=== PATIENT | male | born 1960 | race Caucasian/White ===

== ENCOUNTER 2018-02-19 12:42 | Emergency (ER) | payer BC ==
--- OUTSIDE RECORDS SUMMARY | 2018-02-19 13:05 | XMS REPORT ---
:1960 External Reference #:[id number] Author Organization [facility] Address [address] [place] [address] [place] [address] Phone [phone] Care Team Providers Name Role Phone Gurwinder Snell MD Primary Care Physician Unavailable Payers Type Date Identification Numbers Payment Provider Subscriber Commercial Effective: Policy Number: BS Facets Yancy Cole 2015 [id number] PayID: [id number] [address] [address] GISEL Gagnon [address] Medigap Part B Effective: 2009 Policy Number: BS Of MARGRET Cole [id number] Expires: 2011 PayID: [id number] [address] [address] G[place]EL Gagnon [address] Medigap Part B Expires: 2009 Policy Number: BS Of MARGRET Cole [id number] Group Number: [id number] [address] [address] PayID: [id number] GISEL Gagnon [id number] Advance Directives Type Date Description Status Comment Other Directive 02/28/2016 Health Care Proxy Current and Verified Problems Date Description Provider Status Onset: 12/19/2007 Mixed hyperlipidemia Bebe Foster M.D.,FACP Onset: 12/02/2008 Type II diabetes mellitus Bebe Foster uncontrolled Jevon,FACP Onset: 12/02/2008 Benign essential hypertension Bebe Foster M.D.,FACP Onset: 08/01/2017 Daily headache Bebe Foster M.D.,FACP Onset: 08/16/2017 Chronic tension-type headache Sergey Maloney M.D. Active Onset: 10/11/2017 Obstructive sleep apnea Sergey Maloney M.D. Active syndrome Onset: 09/19/2007 Type 2 diabetes mellitus Gurwinder Snell, Inactive Jevon,FACP Inactive: 03/18/2014 Onset: 06/30/2015 Essential hypertension Gurwinder Snell M.D.,FACP Inactive Inactive: 12/22/2015 Family History Date Family Member(s) Problem(s) Comments General Diabetes General Heart Disease General Kidney Disease Father Heart Disease Father Diabetes Father Diabetes, Non Insulin Dependent Father 80 Father due to PVD () - and diabetes, with sepsis Father Osteoarthritis hip replacement Father Peripheral Vascular Disease (PVD) Mother Kidney Disease Mother due to Renal Failure () - at 44 Mother Mental Illness Siblings 3 First Brother Hypertension First Brother Osteoarthritis Second Brother Unknown estranged First Sister Diabetes First Sister Hypertension First Sister Diabetes, Non Insulin Dependent Paternal Grandfather due to Heart Disease () Paternal Grandmother Rheumatoid Arthritis Social History Type Date Description Comments Marital Status Lives With spouse Occupation Video Journalist Occupation Retired Cigarette Use Former Cigarette Smoker Smoked 2 ppd for 25 years ETOH Use 11/16/2017 Rarely consumes alcohol Recreational Drug Use Denies Drug Use Smoking Patient is a former smoker Smoking Started at 17, quit 30's. 2 pk per day Daily Caffeine Consumes on average 4 cups of regular coffee per day Exercise Type/Frequency Exercises regularly workout every morning General Hx Text 2 kids grown Allergies, Adverse Reactions, Alerts Date Description Reaction Status Severity Comments 09/18/2007 Lipitor active severe myalgias 09/18/2007 Penicillin active Familial 09/18/2007 Bactrim DS active 10/11/2017 Seasonal-Grass/Polllen active Medications Medication Date Status Form Strength Qnty SIG Indications Ordering Provider Basaglar 11/16 Active Solution 100Unit/M 45ml inject 25 Gurwinder Grijalva Pen-Injec L units matthias Snell subcutaneous Jevon,FACP ly daily Topiramate 08/01 Active Tablets 50mg 60tab 1 twice a s day Jevon Maloney BD Pen 04/18 Active Misc 31G X 5 300un use up to E11.9 Gurwinder Grijalva Needle/Mini/Ul /2017 mm its three times Chester, trafine/31G X daily M.D.,FACP 08/11" Pen [place] 04/18 Active 5mm 100un Use With Gurwinder Grijalva 08/11" 31G X /2016 its Levimir Subq Chester, Everyday M.D.,FACP Onetouch 09/24 Active Misc 30G 180un test up to Gurwinder Grijalva Delica Lanc its three times Chester, Fine 30G daily M.D.,FACP Invokana 12/23 Active Tablets 100mg 90tab 1 By Mouth E11.65 Gurwinder Grijalva s Every Day Alis M.DDudley,FACP Onetouch Verio 06/25 Active Strips 100un test up to Gurwinder Grijalva its four times Chester, daily M.D.,FACP Bydureon 03/18 Active Pen 2mg 4unit inject 2 mg E11.65 Gurwinder Grijalva s sc weekly Jevon Snell,FACP Fish Oil 06/12 Active Capsules 1000mg 160ca 2 tabs in ps the am and 2 Andrew, tabs in the N.P. pm Aspirin 01/04 Active Tablets 81mg 50tab 1 po qd Gurwinder Grij[address]va [address] agueda Snell M.D.,[facility] Multivitamins Active Tablets 90tab 1 PO qd Unknown / s Advil Active Capsules 200mg 200ca 1-3 tabs by ps mouth every 8hrs as needed Metformin HCL Active Tablets 500mg 360ta 2 tabs by Gurwinder Grijalva bs mouth twice Chester, a day M.D.,FACP Zetia Active Tablets 10mg 90tab take one Gurwinder Grijalva s tablet by [place], mouth daily M.D.,[facility] Zyrtec Allergy Active Tablets 10mg 1 by mouth Unknown / every day Lubna Active Tablets 180mg 1 by mouth Unknown Allergy / every day Gemfibrozil Active Tablets 600mg 180ta Take 1 Jean Marie bs Tablet By Kaykay, Mouth Twice M.D. Daily Lisinopril 07/20 Hx Tablets 5mg 90tab 1 by mouth Gurwinder Grijalva s every day Alis, - M.DDudley,FACP 03/03 Pen [place] 12/04 Hx 5mm 100un use with Gurwinder Grijalva 08/11" 31G X /2014 its levimir subq Alis, - everyday M.D.,FACP 04/18 Levemir 12/05 Hx Solution 100Unit/M 30uni Inject 25 Gurwinder Grijalva Flexto Pen-Injec L ts Units Under Alis, - t The Skin M.D.,FACP 11/16 Every Levemir 11/18 Hx Solution 100Unit/M 30uni Inject 55 250.02 Gurwinder Grijalva /2013 L ts Units Alis, - Subcutaneous M.D.,FACP 12/05 ly Every Pioglitazone 08/14 Hx Tablets 45mg 90tab Take 1 250.02 Gurwinder Grijalva HCL s Tablet By Alis, - Mouth Every M.D.,FACP Pioglitazone 01/29 Hx Tablets 45mg 90tab Take 1 Gurwinder Grijalva HCL /2011 s Tablet By Alis, - Mouth Every M.D.,FACP Freestyle Lite 11/05 Hx 450un Test Every Gurwinder Grijalva Blood Gluc its Day And as Alis, 50'S - Needed M.D.,FACP 06/25 Minocycline 05/06 Hx Capsules 75mg 28cap bid po 695.3 Gurwinder Grijalva HCL s Alis - M.D.,FACP 08/25 Levemir 05/06 Hx Solution 100Unit/M 30uni Inject 55 250.02 Gurwinder Grijalva Flexpen L ts Units Alis, - Subcutaneous M.D.,FACP 11/18 ly Every Day Ketoconazole 04/12 Hx Cream 2% 45g apply to 690.10 Gurwinder Grijalva affected Alis, - area bid prn M.D.,FACP 08/25 Freestyle Lite 09/10 Hx 150un qd and prn 250.02 Gurwinder Grijalva Test Strips its Alis, - M.D.,FACP 11/05 B-D U/FN Pen 04/19 Hx 100un use as Gurwinder Grijalva NDL Mini its directed Alis (Ej) Roseline Escoto,[facility] 12/04 Niaspan 01/04 Hx Tablets 500mg 180ta take 2 Gurwinder Grijalva ER bs tablets by Alis, - mouth every M.D.,FACP 04/12 Actos 01/04 Hx Tablets 45mg 90tab Take 1 250.02 Gurwinder Grijalva s Tablet By Alis, - Mouth Every M.D.,FACP Niaspan 06/01 Hx Tablets 500mg 60tab 2 PO qpm Gurwinder Grijalva ER s Roseline Snell M.D.,[facility] 01/04 Byvince 12/02 Hx Solution 10mcg/0.0 2.4un Inject 1 250.02 Gurwinder Grijalva 4ML its Dose Under Alis - The Skin Jevon,[facility] 05/06 Twice Daily as Directed Destiny De La Torre 10/08 Hx 31-Gauge 60uni use as Gurwinder Grijalva X 5mm ts directed Roseline Snell M.D.,[facility] 04/19 Destiny 09/30 Hx Solution 5mcg/0.02 1mont sc bid 250.02 Gurwinder Grijalva ML h Roseline Snell M.D.,[facility] 12/02 Niaspan 07/01 Hx Tablets 1000mg 30tab 1 qpm po Gurwinder Grijalva ER Roseline Garcia M.D.,[facility] 06/01 Glipizide 04/18 Hx Tablets 5mg 60tab 1 PO bid Gurwinder Grijalva /2007 Roseline Garcia M.D.,[facility] 09/30 Naprosyn 04/03 Hx Tablets 500mg 60tab 1 po bid prn 726.19 Gurwinder Grijalva /2007 Roseline Garcia M.D.,[facility] 07/01 Tramadol HCL 04/03 Hx Tablets 50mg 50tab 1-2 bid prn 726.19 Gurwinder Grijalva /2007 Roseline Garcia M.D.,[facility] 07/01 Accu-Check 12/18 Hx 50uni bid prn 250.02 Gurwinder Grijalva Yoselin Test /2007 hollie Snell Strips Roseline Escoto,[facility] 09/10 Actos Hx Tablets 30mg 90tab po q am Gurwinder Grijalva /0000 Roseline Garcia M.D.,FACP 01/04 Asa Hx 81mg 90uni 1 PO qd Unknown /0000 ts - 01/04 Glipizide Hx Tablets 5mg 1 PO bid Unknown /0000 - 09/18 Niaspan Hx Tablets 500mg 30tab 2 tabs qhs Gurwinder Grijalva /0000 ER Roseline Garcia M.D.,[facility] 07/01 Fish Oil Hx 1 tab bid Unknown /0000 - 06/12 Lubna Hx Tablets 60mg 180ta 1 PO bid prn Unknown /0000 bs - 09/10 Softclix Hx 50uni bid or as Gurwinder Grijalva Lancets /0000 ts Roseline Garcia M.D.,[facility] 09/24 Accucheck Hx bid prn 250.00 Unknown Advantage Test /0000 Strips - 12/18 Metformin HCL Hx Tablets 1000mg 180ta Take 1 Gurwinder Grijalva /0000 bs Tablet By Alis, - Mouth Twice M.DDudley,[facility] 05/[address] 100mg 14cap bid po when Unknown Hyclate /0000 Part s rosacea is - active 1 po 12/25 qd when it is not active Fexofenadine Hx Tablets 180mg 30tab 1 po qd prn Unknown HCL /0000 s - 06/30 Lubna 00/00 Hx Tablets 180mg 1 by mouth Unknown Allergy /0000 every day - 06/25 Doxycycline 00/00 Hx Capsules 100mg 1 capsule Unknown Hyclate /0000 daily prn - for rosacia 04/21 Minocycline 00/00 Hx Capsules 100mg Unknown HCL /0000 - 06/30 Lubna 0000 Hx Tablets 60mg 3 by mouth Unknown Allergy /0000 every day - 11/16 Zyrtec Allergy Hx Capsules 10mg 1 by mouth Unknown /0000 every day - 08/07 Lisinopril Hx Tablets 10mg 30tab Take 1/2 Gurwinder D. /0000 s Tablet By Alis, - Mouth Every M.D.,FACP 07/20 /2016 Minocycline Hx Capsules 100mg take one Unknown HCL /0000 capsule by - mouth two 11/16 times a day as needed Medications Administered in Office Medication Date Status Form Strength Qnty SIG Indications Ordering Provider Depomedjagdeep Administered Injection Denisha 80MG 014 Jevon Sevilla Immunizations CPT Code Status Date Vaccine Lot # [id number] Given 10/15/2017 Zoster (Shingles) Vaccine (HZV), Recombinant, Subunit, Adjuvanted 21045 Given 08/14/2017 Zoster (Shingles) Vaccine (HZV), Recombinant, Subunit, Adjuvanted 35616 Given 02/06/2017 Influenza Virus Vaccine, Quadrivalent, Split, Preservative Free 29473 Given 03/01/2016 Influenza Virus Vaccine, Quadrivalent, Split Virus, Im Use 15906 Given 06/30/2015 Tdap - Tetanus/Diptheria/Acellular Pertussis [id number] 19560 Given 03/26/2015 Flu Vaccine Split Virus Preservative Free For Indiv 3Yr Older 96232 Given 09/23/2014 Pneumococcal Conjugate Vaccine 13 Valent For [id number] Intramuscular Use 88066 Given 03/08/2014 Flu Vaccine Split Virus Preservative Free For Indiv 3Yr Older 66493 Given 03/29/2013 Flu Vaccine Split Virus Preservative Free For Indiv 3Yr Older 35853 Given 12/18/2012 Hepatitis B Vaccine Adult Dosage [id number] 01024 Given 07/13/2012 Hepatitis B Vaccine Adult Dosage [id number] 21125 Given 06/12/2012 Pneumonia Vaccine [id number] 81773 Given 06/12/2012 Pneumonia Vaccine 29421 Given 06/12/2012 Pneumonia Vaccine 05938 Given 06/12/2012 Hepatitis B Vaccine Adult Dosage [id number] Q2038 Given 03/07/2012 Fluzone Vaccine [id number] 07724 Given 04/12/2011 Influenza Virus 3Yrs & Over [id number] 21066 Given 04/06/2010 Influenza Virus 3Yrs & Over [id number] 06870 Given 04/06/2009 Influenza Virus Vaccine, Pandemic Formulation [id number] 89167 Given 04/06/2009 Administration Swine Flu Shot 65260 Given 04/03/2008 Influenza Virus 3Yrs & Over 55346 Given 04/03/2008 Influenza Virus 3Yrs & Over [id number] Vital Signs Date Vital Result Comment 01/24/2018 Height 71.5 inches 5'11.50" Weight 231.00 lb Heart Rate 58 /min BP Systolic 110 mmHg BP Diastolic 70 mmHg Respiratory Rate 16 /min Pain Level 0 O2 % BldC Oximetry 98 % BMI (Body Mass Index) 31.8 kg/m2 11/20/2017 Height 71.5 inches 5'11.50" Weight 235.38 lb Heart Rate 66 /min BP Systolic Sitting 114 mmHg Lue large cuff BP Diastolic Sitting 76 mmHg Lue large cuff Respiratory Rate 14 /min Pain Level 97 BMI (Body Mass Index) 32.4 kg/m2 11/16/2017 Height 71.5 inches 5'11.50" Weight 235.00 lb Heart Rate 72 /min BP Systolic Sitting 128 mmHg BP Diastolic Sitting 80 mmHg Body Temperature 97.0 F O2 % BldC Oximetry 97 % BMI (Body Mass Index) 32.3 kg/m2 10/11/2017 Height 71.25 inches 5'11.25" Weight 239.00 lb Heart Rate 59 /min BP Systolic 118 mmHg BP Diastolic 72 mmHg Respiratory Rate 16 /min Pain Level 0 O2 % BldC Oximetry 98 % BMI (Body Mass Index) 33.1 kg/m2 09/26/2017 Height 71.25 inches 5'11.25" Weight 238.00 lb Heart Rate 68 /min BP Systolic Sitting 116 mmHg BP Diastolic Sitting 72 mmHg Respiratory Rate 14 /min O2 % BldC Oximetry 97 % BMI (Body Mass Index) 33.0 kg/m2 09/20/2017 Height 71.25 inches 5'11.25" Weight 239.00 lb Heart Rate 68 /min BP Systolic Sitting 138 mmHg BP Diastolic Sitting 64 mmHg Respiratory Rate 14 /min O2 % BldC Oximetry 98 % BMI (Body Mass Index) 33.1 kg/m2 Neck Circumference in inches 17.0 08/16/2017 Height 71.25 inches 5'11.25" Weight 236.00 lb Heart Rate 76 /min BP Systolic Sitting 126 mmHg BP Diastolic Sitting 74 mmHg Respiratory Rate 12 /min O2 % BldC Oximetry 97 % BMI (Body Mass Index) 32.7 kg/m2 08/01/2017 Weight 236.00 lb Heart Rate 65 /min BP Systolic Sitting 120 mmHg BP Diastolic Sitting 70 mmHg Body Temperature 97.0 F O2 % BldC Oximetry 96 % 04/18/2017 Weight 236.00 lb Heart Rate 64 /min BP Systolic Sitting 104 mmHg BP Diastolic Sitting 70 mmHg Body Temperature 96.4 F O2 % BldC Oximetry 98 % 02/21/2017 Weight 235.00 lb Heart Rate 70 /min BP Systolic Sitting 120 mmHg 118/84 BP Diastolic Sitting 60 mmHg 118/84 BP Systolic Standing 115 mmHg BP Diastolic Standing 72 mmHg Body Temperature 97.6 F O2 % BldC Oximetry 98 % 10/12/2016 Height 71 inches 5'11" Weight 236.00 lb Heart Rate 79 /min BP Systolic 108 mmHg BP Diastolic 72 mmHg BP Systolic Recheck 122 mmHg BP Diastolic Recheck 78 mmHg Body Temperature 96.9 F O2 % BldC Oximetry 96 % BMI (Body Mass Index) 32.9 kg/m2 07/05/2016 Weight 233.00 lb with shoes Heart Rate 73 /min BP Systolic 110 mmHg BP Diastolic 74 mmHg O2 % BldC Oximetry 98 % 03/22/2016 Weight 232.00 lb Heart Rate 80 /min BP Systolic Sitting 122 mmHg BP Diastolic Sitting 76 mmHg Respiratory Rate 15 /min O2 % BldC Oximetry 98 % 12/22/2015 Weight 233.00 lb Heart Rate 66 /min BP Systolic Sitting 124 mmHg BP Diastolic Sitting 80 mmHg Respiratory Rate 15 /min O2 % BldC Oximetry 98 % 06/30/2015 Height 71.75 inches 5'11.75" Weight 235.00 lb Heart Rate 69 /min BP Systolic Sitting 118 mmHg BP Diastolic Sitting 78 mmHg Body Temperature 97.0 F O2 % BldC Oximetry 98 % BMI (Body Mass Index) 32.1 kg/m2 04/21/2015 Height 71.75 inches 5'11.75" Weight 239.50 lb Heart Rate 70 /min BP Systolic Sitting 126 mmHg BP Diastolic Sitting 78 mmHg Body Temperature 96.5 F O2 % BldC Oximetry 98 % BMI (Body Mass Index) 32.7 kg/m2 04/21/2015 Height 71.75 inches 5'11.75" 12/23/2014 Height 71.75 inches 5'11.75" Weight 253.00 lb Heart Rate 71 /min BP Systolic Sitting 128 mmHg BP Diastolic Sitting 84 mmHg O2 % BldC Oximetry 98 % BMI (Body Mass Index) 34.5 kg/m2 09/23/2014 Height 71.75 inches 5'11.75" Weight 252.50 lb Heart Rate 78 /min BP Systolic Sitting 148 mmHg BP Diastolic Sitting 80 mmHg Body Temperature 97.3 F O2 % BldC Oximetry 98 % BMI (Body Mass Index) 34.5 kg/m2 06/25/2014 Height 71.75 inches 5'11.75" Weight 256.25 lb Heart Rate 92 /min BP Systolic Sitting 138 mmHg BP Diastolic Sitting 85 mmHg Body Temperature 98.6 F BMI (Body Mass Index) 35.0 kg/m2 03/18/2014 Weight 272.50 lb Heart Rate 87 /min BP Systolic Sitting 136 mmHg BP Diastolic Sitting 81 mmHg Body Temperature 97.3 F O2 % BldC Oximetry 98 % 12/25/2013 Weight 265.00 lb Heart Rate 72 /min BP Systolic Sitting 128 mmHg BP Diastolic Sitting 86 mmHg 12/11/2013 Heart Rate 82 /min BP Systolic Sitting 130 mmHg BP Diastolic Sitting 84 mmHg 10/17/2013 Height 72 inches 6'0" Weight 265.00 lb Heart Rate 91 /min BP Systolic 119 mmHg BP Diastolic 86 mmHg BMI (Body Mass Index) 35.9 kg/m2 06/05/2013 Height 71.5 inches 5'11.50" Weight 266.00 lb Heart Rate 84 /min BP Systolic Sitting 128 mmHg BP Diastolic Sitting 78 mmHg BMI (Body Mass Index) 36.6 kg/m2 01/30/2013 Weight 267.00 lb Heart Rate 84 /min BP Systolic Sitting 124 mmHg BP Diastolic Sitting 78 mmHg 06/12/2012 Height 73.25 inches 6'1.25" Weight 275.00 lb Heart Rate 81 /min BP Systolic Sitting 129 mmHg BP Diastolic Sitting 83 mmHg BMI (Body Mass Index) 36.0 kg/m2 03/07/2012 Height 73.25 inches 6'1.25" Weight 268.00 lb Heart Rate 68 /min BP Systolic Sitting 120 mmHg BP Diastolic Sitting 68 mmHg BMI (Body Mass Index) 35.1 kg/m2 10/06/2011 Height 73.25 inches 6'1.25" Weight 265.00 lb Heart Rate 78 /min BP Systolic Sitting 118 mmHg lg cuff BP Diastolic Sitting 84 mmHg lg cuff BMI (Body Mass Index) 34.7 kg/m2 08/26/2011 Height 73.25 inches 6'1.25" Weight 271.00 lb Heart Rate 76 /min BP Systolic Sitting 126 mmHg BP Diastolic Sitting 84 mmHg BMI (Body Mass Index) 35.5 kg/m2 05/06/2011 Height 73.25 inches 6'1.25" Weight 257.00 lb Heart Rate 74 /min BP Systolic Sitting 132 mmHg BP Diastolic Sitting 80 mmHg BMI (Body Mass Index) 33.7 kg/m2 04/12/2011 Weight 257.00 lb Heart Rate 60 /min BP Systolic Sitting 110 mmHg BP Diastolic Sitting 72 mmHg Body Temperature 97.8 F 09/10/2010 Weight 256.00 lb Heart Rate 72 /min BP Systolic Sitting 124 mmHg BP Diastolic Sitting 76 mmHg 04/06/2010 Weight 256.00 lb Heart Rate 74 /min BP Systolic Sitting 120 mmHg BP Diastolic Sitting 78 mmHg 01/04/2010 Weight 251.00 lb Heart Rate 86 /min BP Systolic Sitting 120 mmHg BP Diastolic Sitting 78 mmHg 03/04/2009 Weight 253.50 lb Heart Rate 72 /min BP Systolic Sitting 116 mmHg BP Diastolic Sitting 78 mmHg 12/02/2008 Weight 258.75 lb Heart Rate 80 /min BP Systolic Sitting 136 mmHg BP Diastolic Sitting 80 mmHg 09/30/2008 Height 71 inches 5'11" Weight 265.00 lb Heart Rate 72 /min BP Systolic Sitting 114 mmHg BP Diastolic Sitting 70 mmHg BMI (Body Mass Index) 37.0 kg/m2 07/01/2008 Height 71 inches 5'11" Weight 274.00 lb Heart Rate 80 /min BP Systolic Sitting 126 mmHg BP Diastolic Sitting 70 mmHg BMI (Body Mass Index) 38.2 kg/m2 04/03/2008 Height 71 inches 5'11" Weight 270.00 lb Heart Rate 76 /min BP Systolic Sitting 138 mmHg BP Diastolic Sitting 88 mmHg BMI (Body Mass Index) 37.7 kg/m2 01/10/2008 Height 71 inches 5'11" Weight 259.00 lb Heart Rate 68 /min BP Systolic Sitting 108 mmHg BP Diastolic Sitting 66 mmHg BMI (Body Mass Index) 36.1 kg/m2 12/19/2007 Height 71 inches 5'11" Weight 258.00 lb Heart Rate 64 /min BP Systolic Sitting 118 mmHg BP Diastolic Sitting 70 mmHg BMI (Body Mass Index) 36.0 kg/m2 09/19/2007 Weight 278.00 lb Heart Rate 68 /min BP Systolic Sitting 138 mmHg BP Diastolic Sitting 88 mmHg Results Test Date Test Result H/L Range Note Urine Microalbumin 11/16/2017 Ur Microalbumin (mg/L) < 15.0 mg/L Random Urine Creatinine 43.74 mg/dL Urine Microalbumin/Creatinine TNP ug/mg <31 1 Laboratory test finding 07/24/2017 Hemoglobin A1c (Glyco HGB) 6.2 % High 4.0-5.6 2 Lipid Profile 07/24/2017 Triglycerides 58 mg/dL 3 (Trig/Chol/HDL) Cholesterol 146 mg/dL 4 HDL Cholesterol 51.1 mg/dL 5 LDL Cholesterol 83 mg/dL 6 Comp Metabolic Panel 07/24/2017 Sodium 137 mmol/L 133-145 Potassium 4.5 mmol/L 3.5-5.0 Chloride 104 mmol/L 101-111 Co2 Carbon Dioxide 27 mmol/L 22-32 Anion Gap 6 mmol/L 2-11 Glucose 127 mg/dL High 70-100 Blood Urea Nitrogen 20 mg/dL 6-24 Creatinine 0.86 mg/dL 0.67-1.17 BUN/Creatinine Ratio 23.3 High 8-20 Calcium 9.2 mg/dL 8.6-10.3 Total Protein 6.9 g/dL 6.4-8.9 Albumin 4.3 g/dL 3.2-5.2 Globulin 2.6 g/dL 2-4 Albumin/Globulin Ratio 1.7 1-3 Total Bilirubin 0.40 mg/dL 0.2-1.0 Alkaline Phosphatase 69 U/L 34-104 Alt 12 U/L 7-52 Ast 13 U/L 13-39 Egfr Non- 91.7 >60 Egfr 117.9 >60 7 CBC Auto Diff 07/24/2017 White Blood Count 5.6 10^3/uL 3.5-10.8 Red Blood Count 5.33 10^6/uL 4.0-5.4 Hemoglobin 16.9 g/dL 14.0-18.0 Hematocrit 49 % 42-52 Mean Corpuscular Volume 93 fL 80-94 Mean Corpuscular Hemoglobin 32 pg High 27-31 Mean Corpuscular HGB Conc 34 g/dL 31-36 Red Cell Distribution Width 12 % 10.5-15 Platelet Count 237 10^3/uL 150-450 Mean Platelet Volume 8 um3 7.4-10.4 Abs Neutrophils 3.5 10^3/uL 1.5-7.7 Abs Lymphocytes 1.3 10^3/uL 1.0-4.8 Abs Monocytes 0.6 10^3/uL 0-0.8 Abs Eosinophils 0.2 10^3/uL 0-0.6 Abs Basophils 0 10^3/uL 0-0.2 Abs Nucleated RBC 0 10^3/uL Granulocyte % 62.3 % 38-83 Lymphocyte % 23.7 % Low 25-47 Monocyte % 10.4 % High 0-7 Eosinophil % 3.0 % 0-6 Basophil % 0.6 % 0-2 Nucleated Red Blood Cells % 0.1 Laboratory test 01/09/2017 Hemoglobin A1c (Glyco 6.3 % High Less than 6.0 8 finding HGB) Basic Metabolic Panel 01/09/2017 Sodium 137 mmol/L 133-145 Potassium 4.5 mmol/L 3.5-5.0 Chloride 103 mmol/L 101-111 Co2 Carbon Dioxide 26 mmol/L 22-32 Anion Gap 8 mmol/L 2-11 Glucose 201 mg/dL High 70-100 Blood Urea Nitrogen 17 mg/dL 6-24 Creatinine 0.77 mg/dL 0.67-1.17 BUN/Creatinine Ratio 22.1 High 8-20 Calcium 9.3 mg/dL 8.6-10.3 Egfr Non- 104.5 >60 Egfr 134.4 >60 9 Urine Microalbumin Random 07/12/2016 Urine Creatinine 74.71 mg/dL Ur Microalbumin (mg/L) < 15.0 mg/L Urine Microalbumin/Creatinine TNP ug/mg <31 10 Lipid Profile (Trig/Chol/HDL) 07/12/2016 Triglycerides 112 mg/dL 11 Cholesterol 171 mg/dL 12 HDL Cholesterol 50.6 mg/dL 13 LDL Cholesterol 98 mg/dL 14 Basic Metabolic Panel 07/12/2016 Sodium 137 mmol/L 133-145 Potassium 4.5 mmol/L 3.5-5.0 Chloride 103 mmol/L 101-111 Co2 Carbon Dioxide 28 mmol/L 22-32 Anion Gap 6 mmol/L 2-11 Glucose 160 mg/dL High 70-100 Blood Urea Nitrogen 19 mg/dL 6-24 Creatinine 0.80 mg/dL 0.67-1.17 BUN/Creatinine Ratio 23.8 High 8-20 Calcium 9.8 mg/dL 8.6-10.3 Egfr Non- 100.0 >60 Egfr 128.6 >60 15 Liver Function Panel 07/12/2016 Total Protein 7.0 g/dL 6.4-8.9 Albumin 4.4 g/dL 3.2-5.2 Globulin 2.6 g/dL 2-4 Albumin/Globulin Ratio 1.7 1-3 Total Bilirubin 0.60 mg/dL 0.2-1.0 Direct Bilirubin 0.10 mg/dL 0.03-0.18 Indirect Bilirubin 0.5 mg/dL 0.3-1.0 Alkaline Phosphatase 60 U/L 34-104 Alt 15 U/L 7-52 Ast 14 U/L 13-39 Laboratory test finding 07/12/2016 Erythrocyte Sed Rate 10 mm/Hr 0-20 16 Vitamin B12 305 pg/mL 180-914 17 TSH (Thyroid Stim Horm) 1.62 mcIU/mL 0.34-5.60 18 Hemoglobin A1c (Glyco HGB) 6.8 % High Less than 6.0 19 Laboratory test finding 07/05/2016 Hemoglobin A1c 6.4 5-7 Laboratory test finding 12/22/2015 Hemoglobin A1c 5.9 5-7 Basic Metabolic Panel 09/02/2015 Sodium 138 mmol/L 133-145 Potassium 4.4 mmol/L 3.5-5.0 Chloride 101 mmol/L 101-111 Co2 Carbon Dioxide 32 mmol/L 22-32 Anion Gap 5 mmol/L 2-11 Glucose 132 mg/dL High 70-100 Blood Urea Nitrogen 19 mg/dL 6-24 Creatinine 0.82 mg/dL 0.67-1.17 BUN/Creatinine Ratio 23.2 High 8-20 Calcium 9.7 mg/dL 8.6-10.3 Egfr Non- 97.5 >60 Egfr 125.4 >60 20 Laboratory test 09/02/2015 Hemoglobin A1c (Glyco 6.2 % High Less than 6.0 21 finding HGB) Urine Microalbumin 06/30/2015 Ur Microalbumin < 5.0 mg/L Random (mg/L) Urine Creatinine 82.99 mg/dL Urine Microalbumin/Creatinine TNP ug/mg <31 22 Lipid Profile (Trig/Chol/HDL) 04/15/2015 Triglycerides 73 mg/dL 23 Cholesterol 149 mg/dL 24 HDL Cholesterol 42.3 mg/dL 25 LDL Cholesterol 92 mg/dL 26 Laboratory test 04/15/2015 Hemoglobin A1c 6.1 % High Less than 6.0 27 finding (Glyco HGB) Basic Metabolic Panel 04/15/2015 Sodium 139 mmol/L 133-145 Potassium 4.4 mmol/L 3.5-5.0 Chloride 103 mmol/L 101-111 Co2 Carbon Dioxide 30 mmol/L 22-32 Anion Gap 6 mmol/L 2-11 Glucose 108 mg/dL High 70-100 Blood Urea Nitrogen 19 mg/dL 6-24 Creatinine 0.86 mg/dL 0.67-1.17 BUN/Creatinine Ratio 22.1 High 8-20 Calcium 9.4 mg/dL 8.6-10.3 Egfr Non- 92.3 >60 Egfr 118.7 >60 28 Laboratory test finding 12/23/2014 Hemoglobin A1c 8.3 High 5-7 Laboratory test finding 09/23/2014 Hemoglobin A1c 7.6 High 5-7 Urine Microalbumin Random 06/25/2014 Ur Microalbumin (mg/L) 5.0 mg/L Urine Creatinine 64.23 mg/dL Urine Microalbumin/Creatinine 7.7 Less Than 31 Lipid Panel - [facility] 06/12/2014 Creatine Kinase 74 U/L 10-223 Comp Metabolic Panel 06/12/2014 Sodium 138 mmol/L 133-145 Potassium 4.6 mmol/L 3.5-5.0 Chloride 103 mmol/L 101-111 Co2 Carbon Dioxide 29 mmol/L 22-32 Anion Gap 6 mmol/L 2-11 Glucose 162 mg/dL High 70-100 Blood Urea Nitrogen 14 mg/dL 6-24 Creatinine 0.95 mg/dL 0.67-1.17 BUN/Creatinine Ratio 14.7 8-20 Calcium 10.0 mg/dL 8.6-10.3 Total Protein 7.2 g/dL 6.4-8.9 Albumin 4.6 g/dL 3.2-5.2 Globulin 2.6 g/dL 2-4 Albumin/Globulin Ratio 1.8 1-3 Total Bilirubin 0.70 mg/dL 0.2-1.0 Alkaline Phosphatase 59 U/L 34-104 Alt 33 U/L 7-52 Ast 26 U/L 13-39 Egfr Non- 82.6 >60 Egfr 106.2 >60 29 Lipid Profile (Trig/Chol/HDL) 06/12/2014 Triglycerides 68 mg/dL 30 Cholesterol 139 mg/dL 31 HDL Cholesterol 40.4 mg/dL 32 LDL Cholesterol 85 mg/dL 33 Laboratory test finding 06/12/2014 Hemoglobin A1c 7.8 % High Less than 6.0 34 Laboratory test finding 03/18/2014 Hemoglobin A1c 7.4 High 5-7 Laboratory test finding 06/05/2013 Hemoglobin A1c 6.7 5-7 Lipid Panel - [facility] 05/09/2013 Creatine Kinase 135 U/L 0-200 35 Comp Metabolic Panel 05/09/2013 Sodium 139 mmol/L 133-145 Potassium 5.0 mmol/L 3.5-5.0 Chloride 103 mmol/L 101-111 Co2 Carbon Dioxide 29.0 mmol/L 22-32 Anion Gap 7.0 mmol/L 2-11 Glucose 161 mg/dL High 70-100 Blood Urea Nitrogen 16 mg/dL 6-24 Creatinine 0.90 mg/dL 0.50-1.40 BUN/Creatinine Ratio 17.8 8-20 Calcium 9.4 mg/dL 8.1-9.9 Total Protein 6.7 g/dL 6.2-8.1 Albumin 4.1 g/dL 3.6-5.4 Globulin 2.6 g/dL 2-4 Albumin/Globulin Ratio 1.6 1-3 Total Bilirubin 0.6 mg/dL 0.4-1.5 Alkaline Phosphatase 62 U/L 30-110 Alt 22 U/L 14-54 Ast 19 U/L 12-42 Egfr Non- 88.3 >60 Egfr 113.5 >60 36 Lipid Profile (Trig/Chol/HDL) 05/09/2013 Triglycerides 57 mg/dL 40-200 Cholesterol 171 mg/dL Less than 200 HDL Cholesterol 48 mg/dL 40-60 37 Cholesterol/HDL Ratio 3.6 Average 1-4.44 LDL Cholesterol 111.6 High Less Than 100 38 Urine Microalbumin Random 05/09/2013 Ur Microalbumin (mg/L) 9.0 mg/L 39 Urine Creatinine 254.5 mg/dL Urine Microalbumin/Creatinine 3.5 Less Than 31 Laboratory test 05/09/2013 Hepatitis C Antibody Nonreactive Nonreactive 40 finding Laboratory test 01/30/2013 Hemoglobin A1c 7.5 High 5-7 finding Lipid Panel - [facility] 06/06/2012 Creatine Kinase 134 U/L 0-200 Comp Metabolic Panel 06/06/2012 Sodium 137 mmol/L 133-145 Potassium 4.4 mmol/L 3.5-5.0 Chloride 106 mmol/L 101-111 Co2 Carbon Dioxide 26.0 mmol/L 22-32 Anion Gap 5.0 mmol/L 2-11 Glucose 241 mg/dL High 70-100 Blood Urea Nitrogen 13 mg/dL 6-24 Creatinine 0.80 mg/dL 0.50-1.40 BUN/Creatinine Ratio 16.3 8-20 Calcium 9.2 mg/dL 8.1-9.9 Total Protein 6.7 g/dL 6.2-8.1 Albumin 3.9 g/dL 3.6-5.4 Globulin 2.8 g/dL 2-4 Albumin/Globulin Ratio 1.4 1-3 Total Bilirubin 0.6 mg/dL 0.4-1.5 Alkaline Phosphatase 72 U/L 30-110 Alt 27 U/L 14-54 Ast 22 U/L 12-42 Egfr Non- 101.5 >60 Egfr 130.6 >60 41 Lipid Profile (Trig/Chol/HDL) 06/06/2012 Triglycerides 79 mg/dL 40-200 Cholesterol 175 mg/dL Less than 200 HDL Cholesterol 48 mg/dL 40-60 42 Cholesterol/HDL Ratio 3.7 Average 1-4.44 LDL Cholesterol 111.2 mg/dL High Less Than 100 43 Laboratory test 06/06/2012 Hemoglobin A1c 8.5 % High Less than 6.0 44 finding Urine Microalbumin 06/06/2012 Ur Microalbumin (Mg/L) 8.0 mg/L 45 Random Urine Creatinine 118.8 mg/dL Urine Microalbumin/Creatinine 6.7 ug/mg Less Than 31 Laboratory test finding 03/07/2012 Hemoglobin A1c 7.3 High 5-7 Hemochromatosis Hereditary Dna 10/06/2011 Specimen Blood () Specimen Id [id number] () Order Date 10 Oct 2011 09:3 <SEE NOTE> () 46 Method . () 47 Hemochromatosis Gene Results . () 48 Hemochromatosis Gene Interpret . () 49 Reviewed By SEE BELOW () 50 Release Date 18 Oct 2011 11:5 <SEE NOTE> () 51 Laboratory test finding 10/06/2011 Hemoglobin A1c 8.9 High 5-7 Lipid Panel - [facility] 09/28/2011 CPK (Creatine Kinase) 144 U/L 0-200 Comp Metabolic Panel 09/28/2011 Sodium 134 mmol/L Low 135-145 Potassium 4.3 mmol/L 3.5-5.0 Chloride 103 mmol/L 101-111 Co2 (Carbon Dioxide) 26.0 mmol/L 22-32 Anion Gap 5.0 mmol/L 2-11 52 Glucose 226 mg/dL High 70-100 BUN 12 mg/dL 6-24 Creatinine 0.8 mg/dL 0.50-1.40 One Over Creatinine 1.25 BUN/Creatinine Ratio 15.0 8-20 Calcium 9.1 mg/dL 8.1-9.9 Total Protein 6.9 GM/DL 6.2-8.1 Albumin 4.1 GM/DL 3.6-5.4 Globulin 2.8 GM/DL 2-4 Albumin/Globulin Ratio 1.5 1-3 Bilirubin Total 0.8 mg/dL 0.4-1.5 53 Alkaline Phosphatase 66 U/L 39-117 Alt (SGPT) 21 U/L 17-63 Ast (Sgot) 19 U/L 12-42 eGFR Non- 101.9 > 60 eGFR 131.1 > 60 54 Lipid Profile (Trig/Chol/HDL) 09/28/2011 Triglyceride 115 mg/dL 40-200 Cholesterol 176 mg/dL Less Than 200 55 High Density Lipoprotein 48 mg/dL 40-60 56 Cholesterol/HDL Ratio 3.67 AVERAGE 1-4.97 Low Density Lipoprotein 105 mg/dL High Less Than 100 57 Urine Microalbumin Random 09/28/2011 Microalbumin (MG/L) 5.0 mg/L Urine Creatinine 164.0 mg/dL L[place] Alb/Creatinine Ratio 3.0 UG/MG Less Than 30 58 CBC Auto Diff 09/13/2011 White Blood Count 4.5 CUMM Low 4.8-10.8 Red Cell Count 4.92 CUMM 4.6-6.2 Hemoglobin 16.0 g/dL 14.0-18.0 Hematocrit 45 % 42-52 Mean Corpuscular Volume 92 um3 80-94 Mean Corpuscular Hemoglob 33 pg High 27-31 Mean Corpuscular HGB Cone 35 g/dL 32-36 Redcell Distribution WDTH 12 % 10.5-15 Platelet Count 230 CUMM 150-450 Mean Platelet Volume 8.6 um3 7.4-10.4 Gran % 49.0 % 38-83 Lymph % 32.9 % 25-47 Mononuclear % 12.3 % High 1-9 Eosinophil % 5.1 % 0-6 Basophil % 0.7 % 0-2 Abs Lymphs 1.5 1.0-4.8 Abs Mononuclear 0.6 0-0.8 Absolute Neutrophil Count 2.2 1.5-7.7 Abs Eosinophils 0.2 0-0.6 Abs Basophils 0 0-0.2 Comp Metabolic Panel 09/13/2011 Sodium 139 mmol/L 135-145 Potassium 4.5 mmol/L 3.5-5.0 Chloride 103 mmol/L 101-111 Co2 (Carbon Dioxide) 29.0 mmol/L 22-32 Anion Gap 7.0 mmol/L 2-11 59 Glucose 208 mg/dL High 70-100 BUN 16 mg/dL 6-24 Creatinine 0.8 mg/dL 0.50-1.40 One Over Creatinine 1.25 BUN/Creatinine Ratio 20.0 8-20 Calcium 9.5 mg/dL 8.1-9.9 Total Protein 7.3 GM/DL 6.2-8.1 Albumin 4.1 GM/DL 3.6-5.4 Globulin 3.2 GM/DL 2-4 Albumin/Globulin Ratio 1.3 1-3 Bilirubin Total 0.8 mg/dL 0.4-1.5 60 Alkaline Phosphatase 61 U/L 39-117 Alt (SGPT) 25 U/L 17-63 Ast (Sgot) 19 U/L 12-42 eGFR Non- 101.9 > 60 eGFR 131.1 > 60 61 Iron & Iron Binding Capacity 09/13/2011 Iron Total 212 g/dL High 45-182 Unsaturated Iron Binding 294 g/dL Total Iron Binding Capacity 506 g/dL High 250-450 % Iron Saturation 42 % 15-55 Laboratory test finding 09/13/2011 Ferritin 66 NG/ML 24-336 Vitamin B12 313 pg/mL 180-914 Folic Acid > 25.6 NG/ML See Below 62 TSH 1.51 MIU/ML 0.34-5.60 Cortisol 9.3 g/dL 63 Vitamin D, 25 Hydroxy 09/13/2011 25-Hydroxy Vitamin D2 <4.0 ng/mL () 25-Hydroxy Vitamin D3 31 ng/mL () 25-Hydroxy Vitamin D Total 31 ng/mL () 64 Laboratory test finding 09/13/2011 Vitamin B1 Whole Blood 136 nmol/L 80- 150 65 Vitamin E 10.5 mg/L 5.5 - 17.0 66 Laboratory test 08/26/2011 Hemoglobin A1c 9.1 High 5-7 finding Surgical Pathology 07/14/2011 Surgical Pathology 67 --- <SEE NOTE> Laboratory test 05/06/2011 Hemoglobin A1c 8.0 High 5-7 finding Laboratory test 01/25/2011 Hemoglobin A1c 7.3 % High Less Than 6.0 68 finding Liver Function Panel 01/25/2011 Total Protein 6.6 GM/DL 6.2-8.1 Albumin 4.1 GM/DL 3.6-5.4 Globulin 2.5 GM/DL 2-4 Albumin/Globulin Ratio 1.6 1-3 Bilirubin Total 0.8 mg/dL 0.4-1.5 69 Bilirubin Direct 0.1 mg/dL 0.1-0.5 Indirect Bilirubin 0.7 mg/dL 0.3-1.0 70 Alkaline Phosphatase 73 U/L 39-117 Alt (SGPT) 18 U/L 17-63 Ast (Sgot) 21 U/L 12-42 Laboratory test finding 01/25/2011 TSH 1.76 MIU/ML 0.34-5.60 Laboratory test finding 09/10/2010 Hemoglobin A1c 7.8 High 5-7 Lipid Panel - [facility] 08/20/2010 CPK (Creatine Kinase) 98 U/L 0-200 Comp Metabolic Panel 08/20/2010 Sodium 137 mmol/L 135-145 Potassium 4.4 mmol/L 3.5-5.0 Chloride 103 mmol/L 101-111 Co2 (Carbon Dioxide) 27.0 mmol/L 22-32 Anion Gap 7.0 mmol/L 2-11 71 Glucose 200 mg/dL High 70-100 BUN 13 mg/dL 6-24 Creatinine 0.90 mg/dL 0.50-1.40 One Over Creatinine 1.10 BUN/Creatinine Ratio 14.4 8-20 Calcium 9.6 mg/dL 8.1-9.9 Total Protein 7.1 GM/DL 6.2-8.1 Albumin 4.2 GM/DL 3.6-5.4 Globulin 2.9 GM/DL 2-4 Albumin/Globulin Ratio 1.4 1-3 Bilirubin Total 1.0 mg/dL 0.4-1.5 72 Alkaline Phosphatase 56 U/L 39-117 Alt (SGPT) 24 U/L 17-63 Ast (Sgot) 23 U/L 12-42 eGFR Non- 89.3 > 60 eGFR 114.9 > 60 73 Lipid Profile (Trig/Chol/HDL) 08/20/2010 Triglyceride 141 mg/dL 40-200 Cholesterol 197 mg/dL Less Than 200 74 High Density Lipoprotein 55 mg/dL 40-60 75 Cholesterol/HDL Ratio 3.58 AVERAGE 1-4.97 Low Density Lipoprotein 114 mg/dL High Less Than 100 76 Liver Function Panel 03/31/2010 Total Protein 6.5 GM/DL 6.2-8.1 Albumin 4.1 GM/DL 3.6-5.4 Globulin 2.4 GM/DL 2-4 Albumin/Globulin Ratio 1.7 1-3 Bilirubin Total 1.0 mg/dL 0.4-1.5 77 Bilirubin Direct 0.1 mg/dL 0.1-0.5 Indirect Bilirubin 0.9 mg/dL 0.3-1.0 78 Alkaline Phosphatase 64 U/L 39-117 Alt (SGPT) 19 U/L 17-63 Ast (Sgot) 17 U/L 12-42 Basic Metabolic Panel 03/31/2010 Sodium 136 mmol/L 135-145 Potassium 4.3 mmol/L 3.5-5.0 Chloride 101 mmol/L 101-111 Co2 (Carbon Dioxide) 29.0 mmol/L 22-32 Anion Gap 6.0 mmol/L 2-11 79 Glucose 176 mg/dL High 70-100 80 BUN 15 mg/dL 6-24 Creatinine 0.80 mg/dL 0.50-1.40 One Over Creatinine 1.20 BUN/Creatinine Ratio 18.8 8-20 Calcium 9.4 mg/dL 8.1-9.9 eGFR Non- 108.8 > 60 eGFR 131.6 > 60 81 Laboratory test 03/31/2010 Hemoglobin A1c 7.6 % High Less Than 6.0 82 finding Lipid Panel - [facility] 12/18/2009 CPK (Creatine 101 U/L 0-200 Kinase) Comp Metabolic Panel 12/18/2009 Sodium 140 mmol/L 135-145 Potassium 4.3 mmol/L 3.5-5.0 Chloride 104 mmol/L 101-111 Co2 (Carbon Dioxide) 30.0 mmol/L 22-32 Anion Gap 6.0 mmol/L 2-11 83 Glucose 183 mg/dL High 70-100 84 BUN 13 mg/dL 6-24 Creatinine 0.90 mg/dL 0.50-1.40 One Over Creatinine 1.10 BUN/Creatinine Ratio 14.4 8-20 Calcium 9.5 mg/dL 8.1-9.9 85 Total Protein 6.5 GM/DL 6.2-8.1 Albumin 4.0 GM/DL 3.6-5.4 Globulin 2.5 GM/DL 2-4 Albumin/Globulin Ratio 1.6 1-3 Bilirubin Total 0.8 mg/dL 0.4-1.5 86 Alkaline Phosphatase 48 U/L 39-117 Alt (SGPT) 22 U/L 17-63 Ast (Sgot) 19 U/L 12-42 eGFR Non- 95.3 > 60 eGFR 115.3 > 60 87 Lipid Profile (Trig/Chol/HDL) 12/18/2009 Triglyceride 84 mg/dL 40-200 Cholesterol 148 mg/dL Less Than 200 88 High Density Lipoprotein 44 mg/dL 40-60 89 Cholesterol/HDL Ratio 3.36 AVERAGE 1-4.97 Low Density Lipoprotein 87 mg/dL Less Than 100 90 Laboratory test finding 12/18/2009 Hemoglobin A1c 8.1 % High Less Than 6.0 91 Liver Function Panel 02/26/2009 Total Protein 7.0 GM/DL 6.2-8.1 Albumin 4.2 GM/DL 3.6-5.4 Globulin 2.8 GM/DL 2-4 Albumin/Globulin Ratio 1.5 1-3 Bilirubin Total 0.7 mg/dL 0.4-1.5 92 Bilirubin Direct 0.1 mg/dL 0.1-0.5 Indirect Bilirubin 0.6 mg/dL 0.1-0.75 Alkaline Phosphatase 57 U/L 39-117 Alt (SGPT) 23 U/L 17-63 Ast (Sgot) 21 U/L 12-42 Lipid Profile (Trig/Chol/HDL) 02/26/2009 Triglyceride 110 mg/dL 40-200 Cholesterol 176 mg/dL Less Than 200 93 High Density Lipoprotein 46 mg/dL 40-60 94 Cholesterol/HDL Ratio 3.83 AVERAGE 1-4.97 Low Density Lipoprotein 108 mg/dL High Less Than 100 95 Laboratory test finding 02/26/2009 Hemoglobin A1c 7.3 % High Less Than 6.0 96 Laboratory test finding 11/26/2008 Lipase 26 U/L 22-51 Laboratory test finding 11/26/2008 Hemoglobin A1c 8.5 % High <6.0 97 Liver Function Panel 11/26/2008 Total Protein 6.7 GM/DL 6.2-8.1 Albumin 3.9 GM/DL 3.6-5.4 Globulin 2.8 GM/DL 2-4 Albumin/Globulin Ratio 1.4 1-3 Bilirubin Total 1.0 mg/dL 0.4-1.5 98 Bilirubin Direct 0.2 mg/dL 0.1-0.5 Indirect Bilirubin 0.8 mg/dL High 0.1-0.75 Alkaline Phosphatase 57 U/L 39-117 Alt (SGPT) 20 U/L 17-63 Ast (Sgot) 17 U/L 12-42 Laboratory test finding 09/30/2008 Hemoglobin A1c 8.4 High 5-7 Lipid Profile (Trig/Chol/HDL) 09/25/2008 Triglyceride 163 mg/dL 40-200 Cholesterol 204 mg/dL High Less Than 200 99 High Density Lipoprotein 45 mg/dL 40-60 100 Cholesterol/HDL Ratio 4.53 AVERAGE 1-4.97 Low Density Lipoprotein 126 mg/dL High Less Than 100 101 Comp Metabolic Panel 09/25/2008 Sodium 138 mmol/L 135-145 Potassium 4.5 mmol/L 3.5-5.0 Chloride 102 mmol/L 101-111 Co2 (Carbon Dioxide) 27.0 mmol/L 22-32 Anion Gap 9.0 mmol/L 2-11 102 Glucose 174 mg/dL High 70-100 103 BUN 16 mg/dL 6-24 Creatinine 0.80 mg/dL 0.50-1.40 One Over Creatinine 1.20 BUN/Creatinine Ratio 20.0 8-20 Calcium 9.2 mg/dL 8.1-9.9 104 Total Protein 6.6 GM/DL 6.2-8.1 Albumin 3.9 GM/DL 3.6-5.4 Globulin 2.7 GM/DL 2-4 Albumin/Globulin Ratio 1.4 1-3 Bilirubin Total 0.7 mg/dL 0.4-1.5 Alkaline Phosphatase 73 U/L 39-117 Alt (SGPT) 24 U/L 17-63 Ast (Sgot) 20 U/L 12-42 Lipid Panel - [facility] 09/25/2008 CPK (Creatine Kinase) 114 U/L 0-200 Laboratory test finding 07/01/2008 Hemoglobin A1c 7.8 High 5-7 Lipid Profile 03/31/2008 Triglyceride 91 mg/dL 40-200 105 (Trig/Chol/HDL) Cholesterol 193 mg/dL Less Than 200 105, 106 High Density Lipoprotein 48 mg/dL 40-60 105, 107 Cholesterol/HDL Ratio 4.02 AVERAGE 1-4.97 105 Low Density Lipoprotein 116 mg/dL High Less Than 100 105, 108 Comp Metabolic Panel 03/31/2008 Sodium 139 mmol/L 135-145 105 Potassium 4.6 mmol/L 3.5-5.0 105 Chloride 100 mmol/L Low 101-111 105 Co2 (Carbon Dioxide) 31.0 mmol/L 22-32 105 Anion Gap 8.0 mmol/L 2-11 105, 109 Glucose 175 mg/dL High 70-100 105, 110 BUN 15 mg/dL 6-24 105 Creatinine 0.89 mg/dL 0.50-1.40 105 One Over Creatinine 1.10 105 BUN/Creatinine Ratio 16.9 8-20 105 Calcium 9.9 mg/dL 8.1-9.9 105, 111 Total Protein 7.1 GM/DL 6.2-8.1 105 Albumin 4.1 GM/DL 3.6-5.4 105 Globulin 3.0 GM/DL 2-4 105 Albumin/Globulin Ratio 1.4 1-3 105 Bilirubin Total 0.6 mg/dL 0.4-1.5 105 Alkaline Phosphatase 53 U/L 39-117 105 Alt (SGPT) 20 U/L 17-63 105 Ast (Sgot) 17 U/L 12-42 105 Lipid Panel - [facility] 03/31/2008 CPK (Creatine Kinase) 87 U/L 0-200 105 Laboratory test 03/31/2008 Hemoglobin A1c 7.9 % High <6.0 105, 112 finding Microalbumin Random 03/31/2008 Microalbumin (MG/L) 11.0 mg/L 105 Urine Urine Creatinine 110.33 mg/dL 105 Lamberto Alb/Creatinine Ratio 9.9 UG/MG Less Than 30 105, 113 Laboratory test finding 09/19/2007 Hemoglobin A1c 8.0% High 5-7 1 Unable to calculate due to low microalbumin 2 Therapeutic target for the treatment of diabetes mellitus patients is <7% HBA1C, and in selective patients <6.0%. Please refer to [place] Diabetes Association diabetic care guidelines for further information. 3 Desirable: <150 Borderline High: 150-199 High: 200-499 Very High: >500 4 Desirable: <200 Borderline High: 200-239 High: >239 5 Low: <40 Desirable: 40-60 High: >60 6 Desirable: <100 Near Optimal: 100-129 Borderline High: 130-159 High: 160-189 Very High: >189 7 Because ethnic data is not always readily available, this report includes an eGFR for both -Americans and non- Americans. The National Kidney Disease Education Program (NKDEP) does not endorse the use of the MDRD equation for patients that are not between the ages of 18 and 70, are , have extremes of body size, muscle mass, or nutritional status, or are non- or non-. According to the National Kidney Foundation, irrespective of diagnosis, the stage of the disease is based on the level of kidney function: Stage Description GFR(mL/min/1.73 m(2)) 1 Kidney damage with normal or decreased GFR 90 2 Kidney damage with mild decrease in GFR 60-89 3 Moderate decrease in GFR 30-59 4 Severe decrease in GFR 15-29 5 Kidney failure <15 (or dialysis) 8 Therapeutic target for the treatment of diabetes Mellitus patients is <7% HBA1C, and in selective patients <6.0%.Please refer to [place] Diabetes Association Diabetic care guidelines for further information. 9 Because ethnic data is not always readily available, this report includes an eGFR for both -Americans and non- Americans. The National Kidney Disease Education Program (NKDEP) does not endorse the use of the MDRD equation for patients that are not between the ages of 18 and 70, are , have extremes of body size, muscle mass, or nutritional status, or are non- or non-. According to the National Kidney Foundation, irrespective of diagnosis, the stage of the disease is based on the level of kidney function: Stage Description GFR(mL/min/1.73 m(2)) 1 Kidney damage with normal or decreased GFR 90 2 Kidney damage with mild decrease in GFR 60-89 3 Moderate decrease in GFR 30-59 4 Severe decrease in GFR 15-29 5 Kidney failure <15 (or dialysis) 10 Unable to calculate due to low microalbumin 11 Desirable <150 Borderline high 150-199 High 200-499 Very High >500 12 Desirable <200 Borderline high 200-239 High >239 13 Low <40 Desirable: 40-60 High: >60 14 Desirable: <100 mg/dL Near Optimal: 100-129 mg/dL Borderline High: 130-159 mg/dL High: 160-189 mg/dL Very High: >189 mg/dL 15 Because ethnic data is not always readily available, this report includes an eGFR for both -Americans and non- Americans. The National Kidney Disease Education Program (NKDEP) does not endorse the use of the MDRD equation for patients that are not between the ages of 18 and 70, are , have extremes of body size, muscle mass, or nutritional status, or are non- or non-. According to the National Kidney Foundation, irrespective of diagnosis, the stage of the disease is based on the level of kidney function: Stage Description GFR(mL/min/1.73 m(2)) 1 Kidney damage with normal or decreased GFR 90 2 Kidney damage with mild decrease in GFR 60-89 3 Moderate decrease in GFR 30-59 4 Severe decrease in GFR 15-29 5 Kidney failure <15 (or dialysis) 16 FASTING 10 HOUR 17 Normal Range 180 to 914 Indeterminate Range 145 to 180 Deficient Range <145 18 FASTING 10 HOUR 19 Therapeutic target for the treatment of diabetes Mellitus patients is <7% HBA1C, and in selective patients <6.0%.Please refer to [place] Diabetes Association Diabetic care guidelines for further information. 20 Because ethnic data is not always readily available, this report includes an eGFR for both -Americans and non- Americans. The National Kidney Disease Education Program (NKDEP) does not endorse the use of the MDRD equation for patients that are not between the ages of 18 and 70, are , have extremes of body size, muscle mass, or nutritional status, or are non- or non-. According to the National Kidney Foundation, irrespective of diagnosis, the stage of the disease is based on the level of kidney function: Stage Description GFR(mL/min/1.73 m(2)) 1 Kidney damage with normal or decreased GFR 90 2 Kidney damage with mild decrease in GFR 60-89 3 Moderate decrease in GFR 30-59 4 Severe decrease in GFR 15-29 5 Kidney failure <15 (or dialysis) 21 Therapeutic target for the treatment of diabetes Mellitus patients is <7% HBA1C, and in selective patients <6.0%.Please refer to [place] Diabetes [employer] Diabetic care guidelines for further information. 22 Unable to calculate due to low microalbumin 23 Desirable <150 Borderline high 150-199 High 200-499 Very High >500 24 Desirable <200 Borderline high 200-239 High >239 25 Low <40 Desirable: 40-60 High: >60 26 Desirable: <100 mg/dL Near Optimal: 100-129 mg/dL Borderline High: 130-159 mg/dL High: 160-189 mg/dL Very High: >189 mg/dL 27 Therapeutic target for the treatment of diabetes Mellitus patients is <7% HBA1C, and in selective patients <6.0%.Please refer to [place] Diabetes [employer] Diabetic care guidelines for further information. 28 Because ethnic data is not always readily available, this report includes an eGFR for both -Americans and non- Americans. The National Kidney Disease Education Program (NKDEP) does not endorse the use of the MDRD equation for patients that are not between the ages of 18 and 70, are , have extremes of body size, muscle mass, or nutritional status, or are non- or non-. According to the National Kidney Foundation, irrespective of diagnosis, the stage of the disease is based on the level of kidney function: Stage Description GFR(mL/min/1.73 m(2)) 1 Kidney damage with normal or decreased GFR 90 2 Kidney damage with mild decrease in GFR 60-89 3 Moderate decrease in GFR 30-59 4 Severe decrease in GFR 15-29 5 Kidney failure <15 (or dialysis) 29 Because ethnic data is not always readily available, this report includes an eGFR for both -Americans and non- Americans. The National Kidney Disease Education Program (NKDEP) does not endorse the use of the MDRD equation for patients that are not between the ages of 18 and 70, are , have extremes of body size, muscle mass, or nutritional status, or are non- or non-. According to the National Kidney Foundation, irrespective of diagnosis, the stage of the disease is based on the level of kidney function: Stage Description GFR(mL/min/1.73 m(2)) 1 Kidney damage with normal or decreased GFR 90 2 Kidney damage with mild decrease in GFR 60-89 3 Moderate decrease in GFR 30-59 4 Severe decrease in GFR 15-29 5 Kidney failure <15 (or dialysis) 30 Desirable <150 Borderline high 150-199 High 200-499 Very High >500 31 Desirable <200 Borderline high 200-239 High >239 32 Low <40 Desirable: 40-60 High: >60 33 Desirable <100 Near Optimal 100-129 Borderline high 130-159 High 160-189 Very High >189 34 Therapeutic target for the treatment of diabetes Mellitus patients is <7% HBA1C, and in selective patients <6.0%.Please refer to [place] [employer] Association Diabetic care guidelines for further information. 35 FASTING 10 HOUR 36 Because ethnic data is not always readily available, this report includes an eGFR for both -Americans and non- Americans. The National Kidney Disease Education Program (NKDEP) does not endorse the use of the MDRD equation for patients that are not between the ages of 18 and 70, are , have extremes of body size, muscle mass, or nutritional status, or are non- or non-. According to the National Kidney Foundation, irrespective of diagnosis, the stage of the disease is based on the level of kidney function: Stage Description GFR(mL/min/1.73 m(2)) 1 Kidney damage with normal or decreased GFR 90 2 Kidney damage with mild decrease in GFR 60-89 3 Moderate decrease in GFR 30-59 4 Severe decrease in GFR 15-29 5 Kidney failure <15 (or dialysis) 37 HDL Interpretation: Undesirable: High Risk: Less than 40 mg/dL Desirable: Low Risk: Greater than 60 mg/dL 38 LDL Interpretation: Low Risk Optimal Level: LDL Less than 100 mg/dL Near or Above Optimal: LDL 100-129 mg/dL Borderline High Risk: LDL 130-159 mg/dL High Risk: LDL 160-189 mg/dL Very High Risk: LDL Greater than 189 mg/dL 39 Microalbuminuria in a random sample is defined as: Microalbumin/Creatinine ratio of 30-299 ug/mg. 40 FASTING 10 HOUR 41 Because ethnic data is not always readily available, this report includes an eGFR for both -Americans and non- Americans. The National Kidney Disease Education Program (NKDEP) does not endorse the use of the MDRD equation for patients that are not between the ages of 18 and 70, are , have extremes of body size, muscle mass, or nutritional status, or are non- or non-. According to the National Kidney Foundation, irrespective of diagnosis, the stage of the disease is based on the level of kidney function: Stage Description GFR(mL/min/1.73 m(2)) 1 Kidney damage with normal or decreased GFR 90 2 Kidney damage with mild decrease in GFR 60-89 3 Moderate decrease in GFR 30-59 4 Severe decrease in GFR 15-29 5 Kidney failure <15 (or dialysis) 42 HDL Interpretation: Undesirable: High Risk: Less than 40 MG/DL Desirable: Low Risk: Greater than 60 MG/DL 43 LDL Interpretation: Low Risk Optimal Level: LDL Less than 100 MG/DL Near or Above Optimal: LDL 100-129 MG/DL Borderline High Risk: LDL 130-159 MG/DL High Risk: LDL 160-189 MG/DL Very High Risk: LDL Greater than 189 MG/DL 44 Therapeutic target for the treatment of diabetes Mellitus patients is <7% HBA1C, and in selective patients <6.0%.Please refer to [place] [employer] Diabetic care guidelines for further information. 45 Microalbuminuria in a random sample is defined as: Microalbumin/Creatinine ratio of 30-299 ug/mg. 46 10 Oct 2011 09:36 47 A PCR-based assay was utilized to test for the following three mutations in the HFE gene: C282Y, H63D, and S65C. Because of the minimal effect on iron metabolism associated with the S65C mutation, it is only reported when it is found with the C282Y mutation (i.e. if the patient has the C282Y/S65C genotype). 48 C282Y: Not detected. H63D: Heterozygous. One copy of the H63D mutation identified. 49 This result suggests a low risk for either a diagnosis of or predisposition for hereditary hemochromatosis (HH). The diagnosis of HH cannot be excluded because approximately 2 to 4% of patients with HH in a [place] population have this genotype. However, this genotype is also found in approximately 20 to 30% of clinically normal individuals. For other ethnic or racial groups, the percentage of HH patients with this genotype may differ. This result does not rule out the presence of disease causing mutations in other regions of the HFE gene or in other genes associated with hemochromatosis. This result should be interpreted in the context of clinical presentation and results of other laboratory tests (e.g., serum transferrin-iron saturation and serum ferritin). The above interpretation assumes that testing is being performed for a possible diagnosis of HH. For carrier testing, the interpretation of this result depends on the family history and genotype of affected individuals. A genetic consultation may be of benefit. CAUTIONS: Test results should be interpreted in context of clinical findings, family history, and other laboratory data. Misinterpretation of results may occur if the information provided is inaccurate or incomplete. Rare polymorphisms exist that could lead to false negative or positive results. If results obtained do not match the clinical findings, additional testing should be considered. Bone marrow transplants from allogenic donors will interfere with testing. Call [facility] for instructions for testing patients who have received a bone marrow transplant. Laboratory developed test. 50 RESULT: Stephanie Ayers Jr., PhD 51 18 Oct 2011 11:55 Test Performed by: [facility] Dpt of Lab Med and Pathology [address] [place], [place] [id number] Career Representative: Bola Quijano III, M.D. 52 Anion gap measurement may be of limited value in the presence of any alkalosis, especially in a combined acid base disorder. . 53 A metabolite of Naproxen, O-desmethylnaproxen, has been shown to interfere with the [place] method for measuring total bilirubin. Samples from patients who have taken Naproxen have shown spurious elevation in total bilirubin levels. 54 Because ethnic data is not always readily available, this report includes an eGFR for both -Americans and non- Americans. The National Kidney Disease Education Program (NKDEP) does not endorse the use of the MDRD equation for patients that are not between the ages of 18 and 70, are , have extremes of body size, muscle mass, or nutritional status, or are non- or non-. According to the National Kidney Foundation, irrespective of diagnosis, the stage of the disease is based on the level of kidney function: Stage Description GFR(mL/min/1.73 m(2)) 1 Kidney damage with normal or decreased GFR 90 2 Kidney damage with mild decrease in GFR 60-89 3 Moderate decrease in GFR 30-59 4 Severe decrease in GFR 15-29 5 Kidney failure <15 (or dialysis) 55 CHOLESTEROL INTERPRETATION: Desirable: Less than 200 MG/DL Borderline-High Risk: 200-239 MG/DL High-Risk: 240 MG/DL and over 56 HDL INTERPRETATION: Undesirable: High Risk: Less than 40 MG/DL Desirable: Low Risk: Greater than 60 MG/DL 57 LDL INTERPRETATION: Low Risk Optimal Level: LDL Less than 100 MG/DL Near or Above Optimal: LDL 100-129 MG/DL Borderline High Risk: LDL 130-159 MG/DL High Risk: LDL 160-189 MG/DL Very High Risk: LDL Greater than 189 MG/DL 58 MICROALBUMINURIA IN A RANDOM SAMPLE IS DEFINED : MICROALBUMIN/CREATININE RATIO OF 30-299 ug/mg. . 59 Anion gap measurement may be of limited value in the presence of any alkalosis, especially in a combined acid base disorder. . 60 A metabolite of Naproxen, O-desmethylnaproxen, has been shown to interfere with the [place] method for measuring total bilirubin. Samples from patients who have taken Naproxen have shown spurious elevation in total bilirubin levels. 61 Because ethnic data is not always readily available, this report includes an eGFR for both -Americans and non- Americans. The National Kidney Disease Education Program (NKDEP) does not endorse the use of the MDRD equation for patients that are not between the ages of 18 and 70, are , have extremes of body size, muscle mass, or nutritional status, or are non- or non-. According to the National Kidney Foundation, irrespective of diagnosis, the stage of the disease is based on the level of kidney function: Stage Description GFR(mL/min/1.73 m(2)) 1 Kidney damage with normal or decreased GFR 90 2 Kidney damage with mild decrease in GFR 60-89 3 Moderate decrease in GFR 30-59 4 Severe decrease in GFR 15-29 5 Kidney failure <15 (or dialysis) 62 Please note: New reference range, effective 05/19/11 NORMAL REFERENCE RANGE: GREATER THAN 4.1 NG/ML 63 REFERENCE RANGE: AM 8.7-22.4 PM LESS THAN 10 . 64 -- REFERENCE VALUE -- 25-HYDROXY D TOTAL (D2+D3) Optimum levels in the normal population are 25-80 Test Performed by: [facility] Dpt of Lab Med and Pathology [address] [place] [address] Career Representative: Bola Quijano III, M.D. 65 High-Performance Liquid Chromatography (HPLC) with fluorescence detection Test Performed by: [facility] Dpt of Lab Med and Pathology [address] [place] [address] Career Representative: Bola Quijano III, M.D. 66 Test Performed by: [place] [address] Career Representative: Chioma Massey, Ph.D. 67 ---- RUN DATE: 07/15/11 [facility] NMI LIVE PAGE 1 RUN TIME: 1201 Specimen Inquiry RUN USER: INTERFACE -- [id number] Status: REG REF Re07/14/11 Age/Sex: 51/M Unit#: [id number] Location: 2EMEO : 60 -- Specimen: [id number] SOUT Spec Date: 07/14/[address]: Fabien carpenter MD Spec Type: SURGICAL P Received: 07/14/11-2347 Copies to: Gurwinder murphy MD SPECIMEN BIOPSY COLON POLYP AT 40 CM. HISTORY POST-OP DIAGNOSIS: Colonoscopy into terminal ileum, prep good; small sigm oid colon polyp, mild sigmoid diverticulosis CLINICAL INFORMATION: Screening colonoscopy, patient denies GI symptoms a nd denies family history of colon cancer GROSS DESCRIPTION The specimen is received in formalin labelled Nilam Cole, Biopsy Colon Polyp at 40 cm., and consists of three fragments of yellow tissue each measuring 0.4 x 0.1 x 0.1 cm. Submitted entirely, one cassette. DIAGNOSIS Colon, 40 cm., biopsy: Hyperplastic polyp. Signed Electronically by: SHY BOWMAN 07/15/11 1201 -- -- DEPARTMENT OF PATHOLOGY, [address] [place] [address] [facility] Permit #[id number] Pawel Amos M.D. Director Shy Bowman M.D. Salesperson Wigs Dir gary -- 68 THERAPEUTIC TARGET FOR THE TREATMENT OF DIABETES MELLITUS PATIENTS IS <7% HBA1C, AND IN SELECTIVE PATIENTS <6.0%. PLEASE REFER TO [employer] DIABETIC CARE GUIDELINES FOR FURTHER INFORMATION. 69 A metabolite of Naproxen, O-desmethylnaproxen, has been shown to interfere with the [place] method for measuring total bilirubin. Samples from patients who have taken Naproxen have shown spurious elevation in total bilirubin levels. 70 Please note updated reference range, effective 12/17/09 71 Anion gap measurement may be of limited value in the presence of any alkalosis, especially in a combined acid base disorder. . 72 A metabolite of Naproxen, O-desmethylnaproxen, has been shown to interfere with the [place] method for measuring total bilirubin. Samples from patients who have taken Naproxen have shown spurious elevation in total bilirubin levels. 73 Because ethnic data is not always readily available, this report includes an eGFR for both -Americans and non- Americans. The National Kidney Disease Education Program (NKDEP) does not endorse the use of the MDRD equation for patients that are not between the ages of 18 and 70, are , have extremes of body size, muscle mass, or nutritional status, or are non- or non-. According to the National Kidney Foundation, irrespective of diagnosis, the stage of the disease is based on the level of kidney function: Stage Description GFR(mL/min/1.73 m(2)) 1 Kidney damage with normal or decreased GFR 90 2 Kidney damage with mild decrease in GFR 60-89 3 Moderate decrease in GFR 30-59 4 Severe decrease in GFR 15-29 5 Kidney failure <15 (or dialysis) 74 CHOLESTEROL INTERPRETATION: Desirable: Less than 200 MG/DL Borderline-High Risk: 200-239 MG/DL High-Risk: 240 MG/DL and over 75 HDL INTERPRETATION: Undesirable: High Risk: Less than 40 MG/DL Desirable: Low Risk: Greater than 60 MG/DL 76 LDL INTERPRETATION: Low Risk Optimal Level: LDL Less than 100 MG/DL Near or Above Optimal: LDL 100-129 MG/DL Borderline High Risk: LDL 130-159 MG/DL High Risk: LDL 160-189 MG/DL Very High Risk: LDL Greater than 189 MG/DL 77 A metabolite of Naproxen, O-desmethylnaproxen, has been shown to interfere with the [place] method for measuring total bilirubin. Samples from patients who have taken Naproxen have shown spurious elevation in total bilirubin levels. 78 Please note updated reference range, effective 12/17/09 79 Anion gap measurement may be of limited value in the presence of any alkalosis, especially in a combined acid base disorder. . 80 Note change in reference range as of 01/17/08. The change was based on recommendations from the [place] [employer]. 81 Because ethnic data is not always readily available, this report includes an eGFR for both -Americans and non- Americans. The National Kidney Disease Education Program (NKDEP) does not endorse the use of the MDRD equation for patients that are not between the ages of 18 and 70, are , have extremes of body size, muscle mass, or nutritional status, or are non- or non-. According to the National Kidney Foundation, irrespective of diagnosis, the stage of the disease is based on the level of kidney function: Stage Description GFR(mL/min/1.73 m(2)) 1 Kidney damage with normal or decreased GFR 90 2 Kidney damage with mild decrease in GFR 60-89 3 Moderate decrease in GFR 30-59 4 Severe decrease in GFR 15-29 5 Kidney failure <15 (or dialysis) 82 THERAPEUTIC TARGET FOR THE TREATMENT OF DIABETES MELLITUS PATIENTS IS <7% HBA1C, AND IN SELECTIVE PATIENTS <6.0%. PLEASE REFER TO [employer] DIABETIC CARE GUIDELINES FOR FURTHER INFORMATION. 83 Anion gap measurement may be of limited value in the presence of any alkalosis, especially in a combined acid base disorder. . 84 Note change in reference range as of 01/17/08. The change was based on recommendations from the [place] [employer]. 85 Please note change in reference range effective 07 . 86 A metabolite of Naproxen, O-desmethylnaproxen, has been shown to interfere with the [place] method for measuring total bilirubin. Samples from patients who have taken Naproxen have shown spurious elevation in total bilirubin levels. 87 Because ethnic data is not always readily available, this report includes an eGFR for both -Americans and non- Americans. The National Kidney Disease Education Program (NKDEP) does not endorse the use of the MDRD equation for patients that are not between the ages of 18 and 70, are , have extremes of body size, muscle mass, or nutritional status, or are non- or non-. According to the National Kidney Foundation, irrespective of diagnosis, the stage of the disease is based on the level of kidney function: Stage Description GFR(mL/min/1.73 m(2)) 1 Kidney damage with normal or decreased GFR 90 2 Kidney damage with mild decrease in GFR 60-89 3 Moderate decrease in GFR 30-59 4 Severe decrease in GFR 15-29 5 Kidney failure <15 (or dialysis) 88 CHOLESTEROL INTERPRETATION: Desirable: Less than 200 MG/DL Borderline-High Risk: 200-239 MG/DL High-Risk: 240 MG/DL and over 89 HDL INTERPRETATION: Undesirable: High Risk: Less than 40 MG/DL Desirable: Low Risk: Greater than 60 MG/DL 90 LDL INTERPRETATION: Low Risk Optimal Level: LDL Less than 100 MG/DL Near or Above Optimal: LDL 100-129 MG/DL Borderline High Risk: LDL 130-159 MG/DL High Risk: LDL 160-189 MG/DL Very High Risk: LDL Greater than 189 MG/DL 91 THERAPEUTIC TARGET FOR THE TREATMENT OF DIABETES MELLITUS PATIENTS IS <7% HBA1C, AND IN SELECTIVE PATIENTS <6.0%. PLEASE REFER TO [employer] DIABETIC CARE GUIDELINES FOR FURTHER INFORMATION. 92 A metabolite of Naproxen, O-desmethylnaproxen, has been shown to interfere with the [place] method for measuring total bilirubin. Samples from patients who have taken Naproxen have shown spurious elevation in total bilirubin levels. 93 CHOLESTEROL INTERPRETATION: Desirable: Less than 200 MG/DL Borderline-High Risk: 200-239 MG/DL High-Risk: 240 MG/DL and over 94 HDL INTERPRETATION: Undesirable: High Risk: Less than 40 MG/DL Desirable: Low Risk: Greater than 60 MG/DL 95 LDL INTERPRETATION: Low Risk Optimal Level: LDL Less than 100 MG/DL Near or Above Optimal: LDL 100-129 MG/DL Borderline High Risk: LDL 130-159 MG/DL High Risk: LDL 160-189 MG/DL Very High Risk: LDL Greater than 189 MG/DL 96 THERAPEUTIC TARGET FOR THE TREATMENT OF DIABETES MELLITUS PATIENTS IS <7% HBA1C, AND IN SELECTIVE PATIENTS <6.0%. PLEASE REFER TO [employer] DIABETIC CARE GUIDELINES FOR FURTHER INFORMATION. 97 THERAPEUTIC TARGET FOR THE TREATMENT OF DIABETES MELLITUS PATIENTS IS <7% HBA1C, AND IN SELECTIVE PATIENTS <6.0%. PLEASE REFER TO [employer] DIABETIC CARE GUIDELINES FOR FURTHER INFORMATION. 98 A metabolite of Naproxen, O-desmethylnaproxen, has been shown to interfere with the [place] method for measuring total bilirubin. Samples from patients who have taken Naproxen have shown spurious elevation in total bilirubin levels. 99 CHOLESTEROL INTERPRETATION: Desirable: Less than 200 MG/DL Borderline-High Risk: 200-239 MG/DL High-Risk: 240 MG/DL and over 100 HDL INTERPRETATION: Undesirable: High Risk: Less than 40 MG/DL Desirable: Low Risk: Greater than 60 MG/DL 101 LDL INTERPRETATION: Low Risk Optimal Level: LDL Less than 100 MG/DL Near or Above Optimal: LDL 100-129 MG/DL Borderline High Risk: LDL 130-159 MG/DL High Risk: LDL 160-189 MG/DL Very High Risk: LDL Greater than 189 MG/DL 102 Anion gap measurement may be of limited value in the presence of any alkalosis, especially in a combined acid base disorder. . 103 Note change in reference range as of 01/17/08. The change was based on recommendations from the [place] Diabetes [employer]. 104 Please note change in reference range effective 07 . 105 FASTING 106 CHOLESTEROL INTERPRETATION: Desirable: Less than 200 MG/DL Borderline-High Risk: 200-239 MG/DL High-Risk: 240 MG/DL and over 107 HDL INTERPRETATION: Undesirable: High Risk: Less than 40 MG/DL Desirable: Low Risk: Greater than 60 MG/DL 108 LDL INTERPRETATION: Low Risk Optimal Level: LDL Less than 100 MG/DL Near or Above Optimal: LDL 100-129 MG/DL Borderline High Risk: LDL 130-159 MG/DL High Risk: LDL 160-189 MG/DL Very High Risk: LDL Greater than 189 MG/DL 109 Anion gap measurement may be of limited value in the presence of any alkalosis, especially in a combined acid base disorder. . 110 Note change in reference range as of 01/17/08. The change was based on recommendations from the [place] [employer]. 111 Please note change in reference range effective 07 . 112 THERAPEUTIC TARGET FOR THE TREATMENT OF DIABETES MELLITUS PATIENTS IS <7% HBA1C, AND IN SELECTIVE PATIENTS <6.0%. PLEASE REFER TO [employer] DIABETIC CARE GUIDELINES FOR FURTHER INFORMATION. 113 MICROALBUMINURIA IN A RANDOM SAMPLE IS DEFINED : MICROALBUMIN/CREATININE RATIO OF 30-299 ug/mg. . Procedures Date CPT Code Description Status 09/21/2017 07439 Sleep Study Unattended,HRT Rate,Oxygen Sat,Resp Completed Effort/Airflow 08/02/2017 Diabetic Retinal Eye Exam Completed 09/22/2015 Diabetic Retinal Eye Exam Completed 07/16/2014 Diabetic Retinal Eye Exam Completed 12/11/2013 11447 X-Ray Spine Cervical Four Views Completed 10/17/2013 84849 Rad Shoulder Comp, Min. 2 Views Completed 10/17/2013 88193 Inject/Drain Joint/Bursa Major W/O US Completed 07/15/2013 Diabetic Retinal Eye Exam Completed 07/17/2012 Diabetic Retinal Eye Exam Completed 09/05/2011 Diabetic Retinal Eye Exam Completed 07/14/2011 Colonoscopy Completed Encounters Type Date Location Provider CPT E/M Dx Office Visit 11/20/2017 Pulmonology [place] [address] G47.33 11:30a Services Of [facility] E66.09 Office Visit 11/16/2017 9:00a [facility] Internal Gurwinder Snell, 87867 Z00.01 Medicine - [address] Jevon,FACP G44.52 G47.33 E11.9 Office Visit 10/11/2017 10:00a John Maloney 71125 G44.221 Neurologic Serv Of Ronn Escoto G44.52 G47.33 Office Visit 09/26/2017 11:45a Pulmonology [place] [address] G47.33 Services Of [facility] Office Visit 09/20/2017 11:00a Pulmonology [place] [address] R06.83 Services Of [facility] R51 Office Visit 08/16/2017 1:00p John Maloney 98184 G44.221 Neurologic Serv Of Ronn Escoto G44.52 Office Visit 08/01/2017 10:00a [facility] Internal Medicine Gurwinder Snell, 19439 R51 - Jacob Escoto,FACP R09.02 E11.9 Office Visit 04/18/2017 3:40p [facility] Internal Medicine Gurwinder Rudi Snell, 96125 R42 - Jacob Escoto,FACP E11.9 R51 Office Visit 02/21/2017 2:40p [facility] Internal Medicine Gurwinder Snell, 81957 H81.10 - Jacob Escoto,FACP Office Visit 10/12/2016 3:00p [facility] Internal Medicine Gurwinder Rudi Snell, 49841 Z00.01 - [address] M.DDudley,FACP E11.9 I10 D48.5 Office Visit 07/05/2016 8:50a [facility] Internal Medicine Gurwinder Snell, 22689 E11.9 - Jacob Escoto,FACP I10 E78.2 R51 G60.8 Office Visit 03/22/2016 8:00a [facility] Internal Medicine Gurwinder Snell, 29570 E11.9 - Jacob Escoto,FACP H53.2 Office Visit 12/22/2015 7:40a [facility] Internal Medicine Gurwinder Snell, 56299 H53.2 - Jacob Escoto,FACP E11.9 I10 Office Visit 06/30/2015 8:30a [facility] Internal Medicine Gurwinder Snell, 46675 Z00.01 - Jacob Escoto,FACP E11.9 I10 Z23 Office Visit 04/21/2015 8:30a [facility] Internal Medicine Gurwinder Snell, 03093 E11.9 - Jacob Escoto,FACP E78.2 Office Visit 12/23/2014 8:30a [facility] Internal Medicine Gurwinder Snell, 28537 250.02 - Jacob Escoto,FACP Office Visit 09/23/2014 8:30a [facility] Internal Medicine Sunny Smallwood, RUTH [address] 250.02 - [address] 381.01 v03.82 Office Visit 06/25/2014 9:10a [facility] Internal Medicine Gurwinder Snell, 76249 V70.0 - Jacob Escoto,FACP 250.02 401.1 Office Visit 03/18/2014 8:50a [facility] Internal Medicine Gurwinder Snell, 72822 250.02 - Jacob Escoto,FACP Office Visit 12/25/2013 11:00a Neurosurgery Services Magen BartonDudley Candelariomartha, 16500 723.1 Of [facility] AT [facility] Office Visit 12/11/2013 4:00p Orthopedic Services Of Denishajames Sevilla, 30584 719.41 Pediatric Speech Therapist AT [facility] 723.1 Office Visit 10/17/2013 1:45p Orthopedic Services Denisha Khalilach, 68671 726.10 [facility]19.[facility] Office Visit 06/05/2013 1:00p [facility] Internal Medicine Gurwinder Snell, 93797 V70.0 - Jacob Escoto,FACP 250.02 Office Visit 01/30/2013 3:40p [facility] Internal Medicine Gurwinder Snell, 88904 250.02 - Jacob Escoto,FACP V73.99 Office Visit 06/12/2012 4:00p [facility] Internal Medicine Samantha Morales, N.PDudley 31794 250.02 - [place] 272.2 401.1 V03.82 V05.3 Office Visit 03/07/2012 4:00p [facility] Internal Medicine Gurwinder Snell, 26464 250.02 - Jacob Escoto,FACP 272.2 V04.81 Office Visit 10/06/2011 9:10a [facility] Internal Medicine Gurwinder Snell, 65806 250.02 - Jacob Escoto,FACP 275.09 Office Visit 08/26/2011 9:00a [facility] Internal Medicine Gurwinder Snell, 59793 250.02 - Jacob Escoto,FACP 278.01 Office Visit 05/06/2011 9:00a DO Not Use Pediatric Speech Therapist AT Gurwinder Snell, 20912 V70.0 Joanne Escoto,FACP 250.02 V76.51 272.2 401.1 695.3 Office Visit 04/12/2011 10:10a DO Not Use Pediatric Speech Therapist AT Gurwinder Snell, 26061 690.10 [facility],FACP 719.49 v04.81 Office Visit 09/10/2010 9:40a DO Not Use Pediatric Speech Therapist AT [facility], 29515 250.02 [facility],FACP 272.2 401.1 244.8 Office Visit 04/06/2010 8:40a DO Not Use Pediatric Speech Therapist AT [facility], 39750 250.02 [facility],FACP 272.2 401.1 V04.81 Office Visit 01/04/2010 11:20a DO Not Use Pediatric Speech Therapist AT [facility], 52520 250.02 [facility],FACP 272.2 401.1 Office Visit 03/04/2009 9:40a DO Not Use Pediatric Speech Therapist AT [facility], 01836 250.00 [facility],FACP 401.1 272.2 Office Visit 12/02/2008 9:20a DO Not Use Pediatric Speech Therapist AT [facility], 43753 250.02 [facility],FACP 726.19 401.1 Office Visit 10/08/2008 8:30a DO Not Use Pediatric Speech Therapist AT [facility] [address] 250.00 [facility] Office Visit 09/30/2008 10:40a DO Not Use Pediatric Speech Therapist AT [facility], 75784 250.02 [facility],FACP 726.0 Office Visit 07/01/2008 11:00a DO Not Use Pediatric Speech Therapist AT [facility], 42416 250.02 [facility],FACP 726.0 250.00 Office Visit 04/03/2008 2:40p DO Not Use Pediatric Speech Therapist AT [facility], 78254 726.19 [facility],FACP 250.00 V04.81 v04.81 Office Visit 01/10/2008 3:40p DO Not Use Pediatric Speech Therapist AT [facility], 80170 840.4 [facility]FACP Office Visit 12/19/2007 9:00a DO Not Use Pediatric Speech Therapist AT [facility], 38703 250.00 [facility],FACP 272.2 726.19 Office Visit 09/19/2007 8:40a DO Not Use Pediatric Speech Therapist AT Gurwinder Snell, 97725 250.00 Joanne Escoto,FACP 719.46 Plan of Care Future Appointment(s):08/01/2018 8:30 am - Sergey Maloney M.D. at [facility]06/05/2018 8:40 am - Gurwinder Snell M.D.,FACP at [facility] Internal Medicine [facility]01/24/2018 - Sergey Maloney M.D.G44.221 Chronic tension-type headache, intractableFollow up:Follow up in 6 ednsanJ17.33 Obstructive sleep apnea (adult) (pediatric)
[2018-02-19 13:21] VITALS: BP 140/76
[2018-02-19] MEDS ORDERED: Ondansetron ODT TAB* 4 MG PO ONE (14:05)
[2018-02-19] MEDS ORDERED: HYDROcodone/ACETAMIN 5-325 MG* 1 TAB PO ONE (14:32)
--- NOTE | 2018-02-19 14:48 | UC ---
Headache HPI - HPI Summary HPI Summary: Patient presents accompanied by his he is complaining of an increasing headache since Monday. He states that he is under the care of Dr. Maloney a neurologist for tension headaches; however, he hasn't had a headache this bad in a long time. He in fact is had good control of his chronic headaches for the past 3-4 months. He goes on to offer that this headache is different in that in addition to the tension around his head which is consistent with his classic headache he is having pain within his hand. He also complains of feeling "dizzy" with this and goes on to describe it as a combination of "imbalance" "floating" and "out of sorts". When he gets the sense of imbalance/ dizziness if he holds onto something and stabilizes himself that goes away. He has had dizziness with prior headaches as well. The headache at time of this visit is 7-8 out of 10. He did take Advil prior to arrival which gave him some relief. He admits to associated nausea, photo and phonophobia as. He denies any change in his vision, speech and has no associated fever or injury. - History Of Current Complaint Chief Complaint: UCGeneralIllness Stated Complaint: HEADACHE,LOSS OF BALANCE Time Seen by Provider: 02/19/18 13:43 Hx Obtained From: Patient, Family/Sleeping Car Porter Onset/Duration: Gradual Onset Pain Intensity: 7 Aggravating Factor(s): Bright Lights Associated Signs And Symptoms: Positive: Nausea - Allergies/Home Medications Allergies/Adverse Reactions: Allergies Allergy/AdvReac Type Severity Reaction Status Date / Time atorvastatin [From Lipitor] Allergy Muscle Ache Verified 08/24/17 08:23 Penicillins Allergy FAMILY HX Verified 08/23/17 09:38 sulfamethoxazole Allergy Hives Verified 08/24/17 08:40 [From Bactrim] trimethoprim [From Bactrim] Allergy Hives Verified 08/24/17 08:40 Home Medications: Home Medications Aspirin [Aspirin EC] 81 mg PO DAILY 02/19/18 [History Confirmed 02/19/18] Canagliflozin (NF) [Invokana (NF)] 100 mg PO DAILY 02/19/18 [History Confirmed 02/19/18] Cetirizine HCl [Zyrtec] 10 mg PO BEDTIME 02/19/18 [History Confirmed 02/19/18] Exenatide Microspheres [Bydureon] 2 mg INJ WEEKLY 02/19/18 [History Confirmed ] Ezetimibe [Zetia] 10 mg PO DAILY 02/19/18 [History Confirmed 02/19/18] Fexofenadine (NF) [[place] 180 (NF)] 180 mg PO DAILY 02/19/18 [History Confirmed 02/19/18] Gemfibrozil 600 mg PO BID 02/19/18 [History Confirmed 02/19/18] Insulin Detemir (NF) [Levemir (NF)] 25 unit INJ BEDTIME 02/19/18 [History Confirmed 02/19/18] Metformin HCl [Fortamet] 1,000 mg PO BID 02/19/18 [History Confirmed 02/19/18] Multivit-Min/Iron Fum/Folic AC [Flegn-Kshqejb-Xugnlsxm Tablet] 1 each PO DAILY 02/19/18 [History Confirmed 02/19/18] [place]-3 Fatty Acids/Fish Oil [Fish Oil 1,000 mg Capsule] 1 each PO BID 02/19/18 [History Confirmed 02/19/18] Topiramate 50 mg PO DAILY 02/19/18 [History Confirmed 02/19/18] PMH/Surg Hx/FS Hx/Imm Hx - Additional Past Medical History Additional PMH: Chronic tension headaches, fifth nerve palsy, hypertension, 2 diabetes, hyperlipidemia. - Surgical History Surgical History: Yes Surgery Procedure, Year, and Place: LEFT SHOULDER MODIFIED [place]. RT SHOULDER REMOVAL OF BONE SPURS AND SCAR TISSUE. LT KNEE ARTHROSCOPY - Family History Known Family History: Positive: Cardiac Disease, Hypertension, Diabetes - Social History Lives: With Family Alcohol Use: Occasionally Substance Use Type: None Smoking Status (MU): Never Smoked Tobacco - Immunization History Vaccination Up to Date: Yes Review of Systems Eyes: Photophobia Gastrointestinal: Nausea Neurological: Headache Is Patient Immunocompromised?: No All Other Systems Reviewed And Are Negative: Yes Physical Exam Triage Information Reviewed: Yes Appearance: Well-Appearing Vital Signs: Initial Vital Signs Temp 97.7 F 02/19/18 13:13 Pulse 65 02/19/18 13:13 Resp 17 02/19/18 13:13 BP 140/76 02/19/18 13:13 Pulse Ox 100 02/19/18 13:13 Vital Signs Reviewed: Yes Eyes: Positive: Conjunctiva Clear, Other: - PERRL, EOMI. ENT: Positive: Pharynx normal, TMs normal. Negative: Nasal congestion, Nasal drainage Neck: Positive: Supple, Nontender, No Lymphadenopathy. Negative: Nuchal Rigidity, Other: - No carotid bruits Respiratory: Positive: Lungs clear, Normal breath sounds Cardiovascular: Positive: RRR, No Murmur Abdomen Description: Positive: Nontender, No Organomegaly, Soft Bowel Sounds: Positive: Present Musculoskeletal: Positive: ROM Intact, No Edema Neurological: Positive: Other: - Patient is alert and oriented to person place and time. Cranial nerves II through XII are grossly intact. He has 5 out of 5 strength and 1+ reflexes 4. He has a normal steady gait. Negative Romberg and negative pronator drift. Performs rapid alternating moves with ease. Psychological: Positive: Normal Response To Family, Age Appropriate Behavior Skin Exam: Normal Diagnostics - Radiology No standard instances Radiology Interpretation Completed By: Radiologist - CT Brain, IMPRESSION: No intracranial mass or hemorrhage is noted. Re-Evaluation - Re-Evaluation First Eval Re-Evaluation Time: 15:41 Change: Improved - pt notes feeling better, less headache. he is comfortable with going home. his will be driving. he will f/u Dr Maloney in the am. Headache Course/Dx - Course Course Of Treatment: At time of exam CT recommended given his dysphagia presentation of headache. Patient and both requests that I call his neurologist-Dr. Maloney PCP agrees with this plan. Call placed to Dr. Maloney. I reviewed the patient's history and physical exam with Dr. Maloney who agrees with the CT. He requests that I give the patient a single dose of [place] while here along with Zofran that I had already given him in an attempt to break the headache. Patient advised that Dr. Maloney agrees with CT and is now agreeable to having CT of his brain. He also agrees to the [place] since his is driving. - Differential Dx/Diagnosis Differential Diagnosis/HQI/PQRI: Migraine, Tension Headache, Other - Intracranial bleed Provider Diagnoses: Headache. Dizziness Discharge - Sign-Out/Discharge Documenting (check all that apply): Patient Departure All imaging exams completed and their final reports reviewed: Yes - Discharge Plan Condition: Improved Disposition: HOME Patient Education Materials: General Headache (ED), Dizziness (ED) Referrals: Gurwinder Snell MD [Primary Care Provider] - If Needed Gustavo Maloney MD [Medical Doctor] - 1 Day - Billing Disposition and Condition Condition: IMPROVED Disposition: Home
--- NOTE | 2018-02-19 15:23 | RAD ---
Indication: Headaches and dizziness. CT of the brain was performed without IV contrast. There is no prior exam for comparison. Ventricular structures are midline. No midline shift is noted. The extra-axial spaces are unremarkable. There is no evidence of intracranial mass or hemorrhage. No other high or low density lesions are identified. Mastoid air cells and paranasal sinuses are otherwise unremarkable. IMPRESSION: No intracranial mass or hemorrhage is noted.
== END 2018-02-19 15:54 | disposition home or self-care (01) ==
LOC: UCCORT 12:42
DX: R51 Headache (principal); R42 Dizziness and giddiness; Z88.0 Allergy status to penicillin; Z88.1 Allergy status to other antibiotic agents; Z88.8 Allergy status to other drugs, medicaments and biological substances; I10 Essential (primary) hypertension; E11.9 Type 2 diabetes mellitus without complications; Z79.4 Long term (current) use of insulin; Z79.84 Long term (current) use of oral hypoglycemic drugs
CPT/HCPCS: 70450; 99212; A9270-GY; G0463